=== PATIENT | male | born 1995 | race Caucasian/White ===

== ENCOUNTER 2017-06-05 12:19 | Emergency (ER) | payer SELFPAY ==
[~2017-06-05] VITALS: Ht 188 cm; Wt 98.1 kg
[2017-06-05 12:26] VITALS: TEMP 37; Ht 188 cm; Wt 98.1 kg
--- NOTE | 2017-06-05 13:18 | EMERGENCY ROOM VISIT NOTE ---
History Report prepared by Jefferyibe: Audra Goldsmith Under the Supervision of: Dr. Doyle Carvajal M.D. First contact with patient: 12:56 Chief Complaint: MENTAL HEALTH EVALUATION Stated Complaint: HALLUCINATIONS History of Present Illness The patient is a 22 year old male who presents to the Emergency Room for a mental health evaluation. The patient states that he is "slowly losing my mind" The patient states that he has been seeing and hearing things. He notes seeing floating glasses and windows. He states the voices he hears "tell me to run away". The patient states he has thought about hurting himself and has tried to hurt himself in the past with a knife. The patient notes these symptoms began a week or two ago. He has had symptoms like this in the past and was treated at [facility] in [place]. There he was diagnosed with schizophrenia. He is not on medication for his schizophrenia currently but is supposed to be. He denies any urinary symptoms, chest pain, or abdominal pain. The patient states that he quit smoking and drinking a week ago. He notes that he did "a lot" of cocaine 2 weeks ago and smokes marijuana. He states his hallucinations are worse when he uses these drugs. The patient is willing to stay in the hospital. Source of History: patient, friend Onset: 2 weeks ago Position: other (generalized) Quality: other (mental health evaluation) Associated Symptoms: No chest pain, No abdominal pain, No urinary symptoms Review of Systems See HPI for pertinent positives & negatives. A total of 10 systems reviewed and were otherwise negative. Past Medical & Surgical Medical Problems: (1) Finger laceration (2) Pharyngitis (3) Schizophrenia Old medical records were reviewed. Nurse's notes were reviewed and I agree with. Family History No significant family history Social History Smoking Status: Never Smoker Alcohol Use: none, occasionally Drug Use: cocaine, marijuana Marital Status: single Housing Status: lives with family Occupation Status: student Current/Historical Medications No Active Prescriptions or Reported Meds Allergies Coded Allergies: BEE STING (Unverified Allergy, Unknown, SWELLING, 06/05/17) Physical Exam Vital Signs Date Time Temp Pulse Resp B/P (MAP) Pulse Ox O2 Delivery O2 Flow Rate FiO2 06/05/17 16:54 74 16 152/92 99 06/05/17 12:26 37.0 75 20 157/101 99 Room Air Physical Exam General: Non-ill appearing young male in no acute distress. HEENT: Normal cephalic atraumatic. Pupils are equal round and reactive to light. Extraocular movements are intact. Oropharynx is pink with moist mucous membranes. No swelling of the mouth lips or tongue. Neck: Supple with a midline trachea. No meningeal signs or stiffness, no JVD or bruits. No Stridor. Chest: Clear to auscultation bilaterally. No wheezes or rhonchi. No increased work of breathing. Heart: regular rate and rhythm. Abdomen: Soft nontender, nondistended without rebound guarding or rigidity. Extremities: No cyanosis clubbing or edema. No calf tenderness or assymetry Spine/Back. Non tender to palpation. No CVA tenderness Skin: Good turgor without rashes. Neurologic exam: Cranial nerves two through 12 are intact. Motor and sensation are intact and symmetrical throughout. Psych: intermittent suicidal thoughts, visual and auditory hallucinations. Medical Decision & Procedures Laboratory Results 06/05/17 13:52 Red Blood Count 5.36, Mean Corpuscular Volume 85.4, Mean Corpuscular Hemoglobin 31.0, Mean Corpuscular Hemoglobin Concent 36.2, Mean Platelet Volume 06/05/17 13:52 Test 06/05/17 12:10 06/05/17 13:52 Urine Opiates Screen NEG (NEG) Urine Methadone, Qualitative NEG (NEG) Urine Barbiturates NEG (NEG) Urine Phencyclidine (PCP) Level NEG (NEG) Ur Amphetamine/Methamphetamine NEG (NEG) MDMA (Ecstasy) Screen NEG (NEG) Urine Benzodiazepines Screen NEG (NEG) Urine Cocaine Metabolite NEG (NEG) Urine Marijuana (THC) POS (NEG) White Blood Count 8.16 K/uL (4.8-10.8) Red Blood Count 5.36 M/uL (4.7-6.1) Hemoglobin 16.6 g/dL (14.0-18.0) Hematocrit 45.8 % (42-52) Mean Corpuscular Volume 85.4 fL (80-100) Mean Corpuscular Hemoglobin 31.0 pg (25-34) Mean Corpuscular Hemoglobin Concent 36.2 g/dl (32-36) Platelet Count K/uL (130-400) Mean Platelet Volume fL (7.4-10.4) RDW Standard Deviation 39.6 fL (36.4-46.3) RDW Coefficient of Variation 12.7 % (11.5-14.5) Neutrophils % (Manual) 55.7 % Lymphocytes % (Manual) 20.9 % Variant Lymphocytes % (manual) 13.0 % Monocytes % (Manual) 7.0 % Eosinophils % (Manual) 1.7 % Basophils % (Manual) 1.7 % (0-2) Neutrophils # (Manual) 4.55 K/uL (1.4-6.5) Total Absolute Neutrophils 4.55 K/uL (1.4-6.5) Lymphocytes # (Manual) 1.71 K/uL (1.2-3.4) Absolute Variant Lymphocytes 1.06 K/uL Total Absolute Lymphocytes 2.77 K/uL (1.2-3.4) Monocytes # (Manual) 0.57 K/uL (0.11-0.59) Eosinophils # (Manual) 0.14 K/uL (0-0.5) Basophils # (Manual) 0.14 K/uL (0-0.2) Red Blood Cell Morphology Unremarkable Anion Gap 6.0 mmol/L (3-11) Est Creatinine Clear Calc Drug Dose 146.1 ml/min Estimated GFR () 135.5 Estimated GFR (Non- 116.9 BUN/Creatinine Ratio 11.8 (10-20) Calcium Level 9.0 mg/dl (8.5-10.1) Total Bilirubin 1.8 mg/dl (0.2-1) Direct Bilirubin 0.3 mg/dl (0-0.2) Aspartate Amino Transf (AST/SGOT) 14 U/L (15-37) Alanine Aminotransferase (ALT/SGPT) 24 U/L (12-78) Alkaline Phosphatase 62 U/L (45-117) Total Protein 7.2 gm/dl (6.4-8.2) Albumin 4.2 gm/dl (3.4-5.0) Lipase 61 U/L (73-393) Thyroid Stimulating Hormone (TSH) 0.476 uIu/ml (0.300-4.500) Salicylates Level < 1.7 mg/dl (2.8-20) Acetaminophen Level < 2 ug/ml (10-30) Ethyl Alcohol mg/dL < 3.0 mg/dl (0-3) Laboratory studies as stated above per my review. ED Course 1307: Past medical records reviewed. The patient was evaluated in room A5, and a complete history and physical examination were performed. 1604: Discussed with case finishing machine adjuster. She states the mother and patient feels safe but would still want some services and to get back on his medication. She says the patient is no longer hearing voices and does not want to hurt himself. The patient does not have medical insurance. 1608: I reassessed the patient. He is happy as outpatient and has no acute suicidal ideation. 1645: Upon reevaluation, the patient is resting. I discussed the results and treatment plan with the patient. He verbalized agreement of the treatment plan. The patient was discharged home. Medical Decision Differential diagnoses include: schizophrenia, depression, psychosis toxicologic process, electrolyte metabolic abnormality. This patient comes in as described above he is brought in after having hallucinations both auditory and visual. He does have a history of schizophrenia . He is not on any medications and he recently back to the area. He also does use marijuana and occasionally cocaine . He has not used cocaine for several weeks. he has no history of significant alcohol use or throat he tells me. Multiple blood tests was obtained for medical clearance she was evaluated in the emergency department by her psychiatric case finishing machine adjuster, Crystal. At this point the patient denies any suicidal or homicidal ideations and she feels he is safe to go home. The patient's friend as the patient also agree. He has been medically cleared. Arrangements are made for him to be seen tomorrow at [facility] and they're also given a [facility] base service referral. The patient was encouraged to return if he is worsening symptoms, thoughts of hurting himself or others, any problems concerns. Medication Reconcilliation Current Medication List: was personally reviewed by me Blood Pressure Screening Patient's blood pressure: Elevated blood pressure Blood pressure disposition: Elevated BP felt to be situational Impression Primary Impression: Hallucination Additional Impression: Schizophrenia Scribe Attestation The scribe's documentation has been prepared under my direction and personally reviewed by me in its entirety. I confirm that the note above accurately reflects all work, treatment, procedures, and medical decision making performed by me. Departure Information Dispostion Home / Self-Care Prescriptions No Active Prescriptions or Reported Meds Referrals No Doctor, Assigned (PCP) Forms HOME CARE DOCUMENTATION FORM, IMPORTANT VISIT INFORMATION Patient Instructions My [facility] Additional Instructions Follow-up with [facility] Return to the emergency department if: Thoughts of hurting herself or others, worsening of symptoms, fever or chills, numbness weakness, any new problems or concerns. Problem Qualifiers
[2017-06-05 14:33] LABS: BUN/CREATININE RATIO 11.8 (10-20); CREATININE 0.93 mg/dl (0.60-1.40); POTASSIUM 3.8 mmol/L (3.5-5.1)
[2017-06-05 14:38] LABS: BENZODIAZEPINE, URINE NEG (NEG); COCAINE,URINE NEG (NEG); PHENCYCLIDINE, URINE NEG (NEG)
[2017-06-05 14:44] LABS: THYROID STIMULATING HORMONE 0.476 uIu/ml (0.300-4.500)
[2017-06-05 15:30] LABS: ACETAMINOPHEN < 2 ug/ml (10-30)
[2017-06-05 15:44] LABS: HEMATOCRIT 45.8 % (42-52); MEAN CELL VOLUME 85.4 fL (80-100); MEAN CORPUSCULAR HGB CONC 36.2 g/dl (32-36); RED BLOOD COUNT 5.36 M/uL (4.7-6.1); WHITE BLOOD COUNT 8.16 K/uL (4.8-10.8)
[2017-06-05 16:10] LABS: BASO ABS # 0.14 K/uL (0-0.2); BASOPHIL % 1.7 % (0-2); COMPLETE YES; EOSINOPHIL % 1.7 %; LYMPH ABS # 1.71 K/uL (1.2-3.4); LYMPHOCYTE % 20.9 %; NEUTROPHILS % 55.7 %; VARIANT LYM ABS # 1.06 K/uL
[2017-06-05 16:54] VITALS: BP 152/92; PULSE 74; O2SAT 99
== END 2017-06-05 16:57 | disposition home or self-care (01) ==
LOC: C.EDB 12:22 → C.EDA 16:57
DX: F20.9 Schizophrenia, unspecified (principal); Z91.030 Bee allergy status

== ENCOUNTER 2017-10-07 09:27 | Emergency (ER) | payer SELFPAY ==
[~2017-10-07] VITALS: Ht 188 cm; Wt 83.9 kg
[2017-10-07 09:32] VITALS: TEMP 36.7; Ht 188 cm; Wt 83.9 kg
[2017-10-07 10:06] LABS: BASO % 0.3 %; BASO ABS # 0.02 K/uL (0-0.2); EOS % 3.1 %; EOS ABS # 0.23 K/uL (0-0.5); HEMATOCRIT 45.1 % (42-52); IG# 0.02 K/uL (0.00-0.02); LYMPH % 29.9 %; LYMPH ABS # 2.21 K/uL (1.2-3.4); MEAN CELL VOLUME 87.6 fL (80-100); MEAN CORPUSCULAR HEMOGLOBIN 31.1 pg (25-34); MEAN CORPUSCULAR HGB CONC 35.5 g/dl (32-36); MEAN PLATELET VOLUME 11.1 fL (7.4-10.4); MONO % 8.5 %; MONO ABS # 0.63 K/uL (0.11-0.59); NEUT % 57.9 %; NEUT ABS # 4.29 K/uL (1.4-6.5); PLATELET COUNT 153 K/uL (130-400); RED CELL DISTRIBUTION WIDTH CV 12.9 % (11.5-14.5); RED CELL DISTRIBUTION WIDTH SD 41.3 fL (36.4-46.3)
[2017-10-07 10:25] LABS: CALCIUM 9.1 mg/dl (8.5-10.1); CREATININE 0.87 mg/dl (0.60-1.40)
[2017-10-07] MEDS ORDERED: CIPROFLOXACIN 400MG / 200ML D5W IV STA (10:29)
--- NOTE | 2017-10-07 10:29 | DIAGNOSTIC IMAGING REPORT ---
R FOOT MIN 3 VIEWS ROUTINE CLINICAL HISTORY: Stepped on peng nail in goat feces. COMPARISON: Right foot radiograph March 24, 2008. FINDINGS: Tarsometatarsal joints are intact. There is no fracture, radiopaque foreign body or evidence for osteomyelitis within the right foot. There is a bipartite medial sesamoid of the right great toe. IMPRESSION: No fracture, radiopaque foreign body or evidence for osteomyelitis within the right foot. Electronically signed by: Camron Alex M.D. 10/07/2017 10:28 AM Dictated Date/Time: 10/07/2017 10:26 AM
[2017-10-07] MEDS ORDERED: PALI3TAB PO (10:30)
[2017-10-07 10:39] VITALS: BP 126/77; PULSE 69; O2SAT 97
[2017-10-07] MEDS ORDERED: CIPR-255 PO (11:03)
--- NOTE | 2017-10-07 11:05 | EMERGENCY ROOM VISIT NOTE ---
History First contact with patient: 09:38 Chief Complaint: FOOT PAIN Stated Complaint: STEPPED ON NAIL History of Present Illness The patient is a 22 year old male who presents to the Emergency Room with complaints of "stepped on nail". The patient states that yesterday around 2:00 PM [place], when he accidentally stepped on a peng nail in goat feces. He notes that this penetrated his shoe and subsequently the left distal. He states that there is pain immediately but now he notes redness, swelling and increased pain. He rates the overall pain currently as a 2/10. No fevers or chills. Review of Systems A complete 6-point Review of Systems was discussed with the patient, with pertinent positives and negatives listed in the History of Present Illness. All remaining Review of Systems questions can be considered negative unless otherwise specified. Past Medical/Surgical History Medical Problems: (1) Finger laceration (2) Pharyngitis (3) Schizophrenia Family History No significant family history Social History Smoking Status: Never Smoker Alcohol Use: none, occasionally Drug Use: cocaine, marijuana Marital Status: single Housing Status: lives with family Occupation Status: student Current/Historical Medications Scheduled Ciprofloxacin Hcl (Cipro), 500 MG PO BID Paliperidone (Invega), Unknown Dose PO DAILY Physical Exam Vital Signs Date Time Temp Pulse Resp B/P (MAP) Pulse Ox O2 Delivery O2 Flow Rate FiO2 10/07/17 10:39 69 18 126/77 97 Room Air 10/07/17 09:32 36.7 76 16 139/75 95 Room Air Physical Exam VITAL SIGNS - Vital signs and nursing notes were reviewed. Stable. GENERAL - 22-year-old male appearing his stated age who is in no acute distress. Communicates well with provider and answers questions appropriately. SKIN - Overlying the plantar aspect of patients feet at the base of the toes there is evidence of a puncture wound and surrounding erythema and edema. No drainage. No streaking. EXTREMITIES - No clubbing or peripheral cyanosis. No pretibial edema present. He is neurovascularly intact. Medical Decision & Procedures ER Provider Diagnostic Interpretation: R FOOT MIN 3 VIEWS ROUTINE CLINICAL HISTORY: Stepped on peng nail in goat feces. COMPARISON: Right foot radiograph March 24, 2008. FINDINGS: Tarsometatarsal joints are intact. There is no fracture, radiopaque foreign body or evidence for osteomyelitis within the right foot. There is a bipartite medial sesamoid of the right great toe. IMPRESSION: No fracture, radiopaque foreign body or evidence for osteomyelitis within the right foot. Electronically signed by: Camron Alex M.D. 10/07/2017 10:28 AM Dictated Date/Time: 10/07/2017 10:26 AM Laboratory Results 10/07/17 09:55 Red Blood Count 5.15, Mean Corpuscular Volume 87.6, Mean Corpuscular Hemoglobin 31.1, Mean Corpuscular Hemoglobin Concent 35.5, Mean Platelet Volume 11.1, Neutrophils (%) (Auto) 57.9, Lymphocytes (%) (Auto) 29.9, Monocytes (%) (Auto) 8.5, Eosinophils (%) (Auto) 3.1, Basophils (%) (Auto) 0.3, Neutrophils # (Auto) 4.29, Lymphocytes # (Auto) 2.21, Monocytes # (Auto) 0.63, Eosinophils # (Auto) 0.23, Basophils # (Auto) 0.02 10/07/17 09:55 Test 10/07/17 09:55 White Blood Count 7.40 K/uL (4.8-10.8) Red Blood Count 5.15 M/uL (4.7-6.1) Hemoglobin 16.0 g/dL (14.0-18.0) Hematocrit 45.1 % (42-52) Mean Corpuscular Volume 87.6 fL (80-100) Mean Corpuscular Hemoglobin 31.1 pg (25-34) Mean Corpuscular Hemoglobin Concent 35.5 g/dl (32-36) Platelet Count 153 K/uL (130-400) Mean Platelet Volume 11.1 fL (7.4-10.4) Neutrophils (%) (Auto) 57.9 % Lymphocytes (%) (Auto) 29.9 % Monocytes (%) (Auto) 8.5 % Eosinophils (%) (Auto) 3.1 % Basophils (%) (Auto) 0.3 % Neutrophils # (Auto) 4.29 K/uL (1.4-6.5) Lymphocytes # (Auto) 2.21 K/uL (1.2-3.4) Monocytes # (Auto) 0.63 K/uL (0.11-0.59) Eosinophils # (Auto) 0.23 K/uL (0-0.5) Basophils # (Auto) 0.02 K/uL (0-0.2) RDW Standard Deviation 41.3 fL (36.4-46.3) RDW Coefficient of Variation 12.9 % (11.5-14.5) Immature Granulocyte % (Auto) 0.3 % Immature Granulocyte # (Auto) 0.02 K/uL (0.00-0.02) Anion Gap 9.0 mmol/L (3-11) Est Creatinine Clear Calc Drug Dose 156.2 ml/min Estimated GFR () 143.0 Estimated GFR (Non- 123.4 BUN/Creatinine Ratio 15.8 (10-20) Calcium Level 9.1 mg/dl (8.5-10.1) Medications Administered Medications (Trade) Dose Ordered Sig/Lloyd Route Start Time Stop Time Status Last Admin Dose Admin Ciprofloxacin/ Dextrose (Cipro / D5W) 400 mg NOW STAT IV 10/07/17 10:29 10/07/17 10:30 DC 10/07/17 10:36 400 MG Medical Decision Patient was seen and evaluated as above. He presents to us today status post puncture via peng nail to the patient's left foot. There is signs of developing infection. After obtaining a thorough history and physical examination the above work up was performed. X-ray negative. The region was cleansed with normal saline and Betadine. This was dressed with a soft bulky dressing with bacitracin. He was offered splint and crutches so that he does not walk on the region but declined the postop shoe. He notes that he will use the crutches. He was given IV ciprofloxacin. No concerning leukocytosis or anemia. No concerning metabolic abnormality. He appears stable for outpatient management but was given extensive precautions on worrisome symptoms which to return. A lengthy discussion was had regarding management. He is to return if worsening. He is to call his family doctor schedule follow-up for reevaluation in the next 1-2 days. He is to return with worsening. Weight The patient was educated upon management, had questions answered prior to discharge, and was discharged home in good condition. He will be discharged home with cipro. Case was discussed with the attending physician In the evaluation and treatment of this patient the following differential diagnoses were entertained: Fracture, dislocation, retained foreign body, osteomyelitis, among others. Impression Primary Impression: Foot pain Additional Impressions: Puncture wound of foot without foreign body Cellulitis Departure Information Dispostion Home / Self-Care Condition GOOD Prescriptions Ciprofloxacin Hcl (CIPRO) 500 Mg Tab 500 MG PO BID for 10 Days, #20 TAB Prov: Anibal Bergeron PA-C 10/07/17 Referrals [facility] (PCP) Patient Instructions My [facility] Additional Instructions You were seen in the emergency Department for an infection of the bottom of your foot following stepping on a peng nail. I do recommend ciprofloxacin, 500 mg every 12 hours for 10 days. This is to help treat the infection of your foot. It is very important that you monitor the foot for worsening signs of infection to include redness, swelling, drainage or increased pain. This is to develop or he developed fevers please return immediately. Do not walk on foot. Use crutches to keep off of foot. Please call your family doctor to schedule follow-up and reevaluation in 2 days , or return with worsening. Please keep the area clean, please do dressing changes each day as we discussed. This is until healed which is about 14 days. Please do not get the wound dirty. Do not submerge in water. Please return with any new/concerning symptoms. Problem Qualifiers
== END 2017-10-07 12:04 | disposition home or self-care (01) ==
LOC: C.EDB 09:30 → C.EDA 12:04
DX: S91.332A Puncture wound without foreign body, left foot, initial encounter (principal); L03.116 Cellulitis of left lower limb; W45.0XXA Nail entering through skin, initial encounter; Y92.71 Barn as the place of occurrence of the external cause; F20.9 Schizophrenia, unspecified; F14.90 Cocaine use, unspecified, uncomplicated; F12.90 Cannabis use, unspecified, uncomplicated

== ENCOUNTER 2018-04-08 20:58 | Emergency (ER) | payer SELFPAY ==
[~2018-04-08] VITALS: Ht 185.4 cm; Wt 119.2 kg
[~2018-04-08 20:58] MED LIST: CIPR-255 PO; PALI3TAB PO
[2018-04-08 21:05] VITALS: TEMP 36.9; Ht 185.4 cm; Wt 119.2 kg
--- NOTE | 2018-04-08 21:46 | EMERGENCY ROOM VISIT NOTE ---
History First contact with patient: 21:15 Chief Complaint: HEAD INJURY (MINOR) Stated Complaint: HEAD INJURY HEADACHE History of Present Illness The patient is a 23 year old male who presents to the Emergency Room with complaints of head injury. The patient states that he [place] [address] and he thinks the top of his head hit off a bolt or nail. The patient states that there is a lot of bleeding from the top of his head. The patient admits to a slight headache but denies any visual changes, dizziness, loss of consciousness. The patient's tetanus is up-to-date. Review of Systems 10 system review was performed and was negative unless stated otherwise history of present illness. Past Medical/Surgical History Medical Problems: (1) Finger laceration (2) Pharyngitis (3) Schizophrenia Family History No significant family history Social History Smoking Status: Current Every Day Smoker Alcohol Use: none, occasionally Drug Use: cocaine, marijuana Marital Status: single Housing Status: lives with family Occupation Status: student Current/Historical Medications Scheduled Ciprofloxacin Hcl (Cipro), 500 MG PO BID Paliperidone (Invega), Unknown Dose PO DAILY Physical Exam Vital Signs Date Time Temp Pulse Resp B/P (MAP) Pulse Ox O2 Delivery O2 Flow Rate FiO2 04/08/18 21:06 18 04/08/18 21:05 36.9 93 18 188/81 98 Room Air Physical Exam GENERAL: 23-year-old male appears in no acute distress. MENTAL Status: Alert and oriented 3. HEAD: There is a puncture wound on the top of the head with a small abrasion extending posterior in a thin line distribution. There is no active bleeding. The wound is dirty. EYES: PERRLA. EOMs intact. EARS: Canals clear. TMs without fluid level noted. NECK: Supple, no lymphadenopathy noted. No carotid bruits noted. LUNGS: Clear auscultation without wheezes rales or rhonchi. CARDIAC: Regular rate and rhythm without murmur. Pulses is full and equal throughout. NEURO:Cranial nerves two through 12 intact. Cerebellar function intact with [id number]. Fine motor intact with alternating finger motions. Medical Decision & Procedures ED Course The patient was evaluated. The wound was copiously cleansed with normal saline. Antibiotic ointment and a bandage was applied. The patient was discharged home in stable condition. Medical Decision Differential diagnosis include large laceration, puncture wound, abrasion, head contusion [place] Drug Monitoring Program Search Results: patient reviewed within database Head Trauma GCS Score: 15 Medication Reconcilliation Current Medication List: was personally reviewed by me Blood Pressure Screening Patient's blood pressure: Elevated blood pressure Blood pressure disposition: Elevated BP felt to be situational Impression Primary Impression: Puncture wound of head Departure Information Dispostion Home / Self-Care Condition GOOD Referrals [facility] (PCP) Forms HOME CARE DOCUMENTATION FORM, IMPORTANT VISIT INFORMATION Patient Instructions [facility] Additional Instructions Antibiotic ointment and a bandage for 2 days. Observe closely for signs of infection such as redness, purulent drainage. If any should occur seek further medical attention for antibiotic therapy. Problem Qualifiers Primary Impression: Puncture wound of head Encounter type: initial encounter Location of open wound of head: scalp Foreign body presence: without foreign body Qualified Codes: S01.03XA - Puncture wound without foreign body of scalp, initial encounter
[2018-04-08] MEDS ORDERED: PALI156I (22:01)
[2018-04-08 22:02] VITALS: BP 178/82; PULSE 72; O2SAT 99
== END 2018-04-08 22:00 | disposition home or self-care (01) ==
LOC: C.EDB 20:59 → C.EDD 22:00
DX: S01.03XA Puncture wound without foreign body of scalp, initial encounter (principal); W45.8XXA Other foreign body or object entering through skin, initial encounter; F17.200 Nicotine dependence, unspecified, uncomplicated; F12.90 Cannabis use, unspecified, uncomplicated; F11.90 Opioid use, unspecified, uncomplicated